=== PATIENT | female | born 1995 | race Caucasian/White ===

== ENCOUNTER 2021-04-13 17:14 | Emergency (ER) | payer MEDICAID ==
[2021-04-13 17:59] LABS: Bilirubin Neg (Negative); Blood, Urine Negative (Negative); Clarity Clear (Clear); Glucose, Urine (Dipstick) Normal (Negative); Ketone, Urine Negative (Negative); Leukocyte 100 (Negative); Nitrite Negative (Negative); Protein, Urine (Dipstick) Negative (Neg-Trace); Urobilinogen Normal mg/dL (Less than 2)
[2021-04-13 18:04] LABS: Pregnancy Test - Urine (BHCG) POSITIVE (Negative); Pregu Control Background? CLEAR/WHITE (CLR/WHITE); Pregu Control Bar Appear? YES (CONTROL BAR)
[2021-04-13 18:07] LABS: Bacteria/HPF None Seen HPF (None Seen); RBC/HPF None Seen HPF (0-3); Squamous Epithelial 0-3 HPF (0-3); WBC/HPF 0-3 HPF (0-3)
== END 2021-04-13 21:06 | disposition home or self-care (01) ==
LOC: CSHERS 17:14
DX: O20.0 Threatened abortion (principal); Z3A.01 Less than 8 weeks gestation of pregnancy; O99.511 Diseases of the respiratory system complicating pregnancy, first trimester; J45.909 Unspecified asthma, uncomplicated; O99.011 Anemia complicating pregnancy, first trimester; O99.331 Smoking (tobacco) complicating pregnancy, first trimester
CPT/HCPCS: 76856; 81003; 81015; 81025; 84702

== ENCOUNTER 2021-11-15 13:14 | Day surgery (SDC) | payer OTHER ==
[2021-11-15] MEDS ORDERED: Acetaminophen 500 MG TAB ONE (13:41)
[2021-11-15] MEDS ORDERED: Iron Sucrose Complex 500 MG in Sodium Chloride 0.9% 250 ML 250 ML IVPB SCH (14:00)
[2021-11-15] MEDS ORDERED: Acetaminophen 500 MG TAB PO SCH (14:00)
== END 2021-11-15 18:25 | disposition home or self-care (01) ==
LOC: CSHSDC/OP 13:14
PROVIDERS: ATTEND Family Medicine
DX: O99.019 Anemia complicating pregnancy, unspecified trimester (principal); D64.9 Anemia, unspecified
CPT/HCPCS: J1756; J7050

== ENCOUNTER 2021-12-05 14:34 | Outpatient (CLI) | payer OTHER | END 2021-12-05 14:35 | disposition home or self-care (01) | LOC: CSHLAB 14:34 | PROVIDERS: ATTEND Family Medicine | DX: Z20.822 Contact with and (suspected) exposure to COVID-19 (principal) | CPT/HCPCS: 87811 ==

== ENCOUNTER 2021-12-08 18:55 | Inpatient (IN) | payer OTHER ==
[~2021-12-08 18:55] MED LIST: Bupivacaine/Epinephrine 0.25% 30 ML VIAL ONE; Terbutaline Sulfate 1 MG/ML VIAL ONE
[2021-12-08 19:31] VITALS: BMI 27.3
[2021-12-08 20:43] LABS: Hemoglobin 8.7 g/dL (12.0-15.5); Mean Corpuscular HGB CONC 30.1 g/dL (32.0-36.0); Mean Corpuscular Hemoglobin 21.6 pg (27.0-33.0); Mean Corpuscular Volume 71.7 fl (81.6-98.3); Mean Platelet Volume 10.1 fl (7.4-10.4); Platelet Count 205 10x3/uL (150-450); RBC Distribution Width 24.5 % (11.5-14.5); Red Blood Cell (RBC) Count 4.03 10x6/uL (3.90-5.03); White Blood Cell (WBC) Count 6.5 10x3/uL (3.5-10.5)
[2021-12-08] MEDS ORDERED: Ondansetron PF 4 MG/2 ML Vial IVP PRN (20:43)
[2021-12-08] MEDS ORDERED: hydrALAZINE 20 MG/ML VIAL SLOW IVP PRN (20:43)
[2021-12-08] MEDS ORDERED: Promethazine HCl 25 MG/ML VIAL IM PRN (20:43)
[2021-12-08] MEDS ORDERED: Lidocaine 1% (PF) 30 ML VIAL SC PRN (20:43)
[2021-12-08 21:17] LABS: Hep B Surf Ag Non-Reactive S/CO (NonReactive)
[2021-12-08 21:20] LABS: HBSAg Index 0.29 S/CO (0-0.99)
[2021-12-08] MEDS ORDERED: Penicillin G Potassium 5 MILL.UNITS in Sodium Chloride 0.9% 100 ML IVPB SCH (21:30)
[2021-12-08] MEDS ORDERED: Lactated Ringer's 1,000 ML IV SCH (21:45)
[2021-12-08 22:19] LABS: Syphilis Antibody Nonreactive (Nonreactive); Syphilis Antibody Index 0.05 S/CO (<1.00 Non-Reactive)
[2021-12-08] MEDS: Misoprostol 100 MCG TAB VAG SCH (22:45)
[2021-12-09] MEDS: Penicillin G 2.5 MILL.units 2.5 MILL.UNITS in Premix Bag 1 BAG IVPB SCH ×3 (01:04→15:31)
[2021-12-09] MEDS ORDERED: Fentanyl 2 mcg/Bup 0.1% Cadd 100 ML ONE (03:17)
[2021-12-09] MEDS ORDERED: Terbutaline Sulfate 1 MG/ML VIAL SC SCH (04:45)
[2021-12-09] MEDS ORDERED: Terbutaline Sulfate 1 MG/ML VIAL ONE (04:47)
[2021-12-09] MEDS ORDERED: Acetaminophen 325 MG TAB PO PRN (04:56)
[2021-12-09] MEDS ORDERED: Naloxone HCl 0.4 mg/ml Vial IVP PRN ×2 (04:56)
[2021-12-09] MEDS ORDERED: Ondansetron PF 4 MG/2 ML Vial IVP PRN ×2 (04:56→07:59)
[2021-12-09] MEDS ORDERED: ePHEDrine Sulfate 50 MG/10 ML VIAL SLOW IVP PRN (04:56)
[2021-12-09] MEDS ORDERED: Moisturizing Cream (Eucerin) 113 GM JAR TOP PRN (04:56)
[2021-12-09] MEDS ORDERED: Promethazine HCl 25 MG/ML VIAL IM PRN (04:56)
[2021-12-09] MEDS ORDERED: diphenhydrAMINE 50 MG/ML VIAL IVP PRN (04:56)
[2021-12-09] MEDS ORDERED: Fentanyl 2 mcg/Bupivacaine 0.1% Cassette 100 ML EPIDURAL SCH (05:00)
[2021-12-09] MEDS ORDERED: Communication Order-Pharmacy FS SCH (05:00)
[2021-12-09] MEDS ORDERED: Lactated Ringer's 500 ML IV PRN (05:26)
[2021-12-09] MEDS ORDERED: Lactated Ringer's 500 ML IV SCH (05:30)
[2021-12-09] MEDS ORDERED: Misoprostol 200 MCG TAB ONE ×2 (07:36→07:38)
[2021-12-09] MEDS ORDERED: Tranexamic Acid 1,000 MG/10 ML VIAL ONE (07:38)
[2021-12-09] MEDS ORDERED: Carboprost 250 MCG/ML AMP ONE (07:39)
[2021-12-09] MEDS ORDERED: Methylergonovine 0.2 MG/ML VIAL ONE (07:39)
[2021-12-09] MEDS: NS w/ Oxytocin 30 units 500 ML IV SCH ×2 (07:54→09:35)
[2021-12-09] MEDS ORDERED: Milk Of Magnesia 30 ML UDCUP PO PRN (07:59)
[2021-12-09] MEDS ORDERED: Lanolin Ointment 7 GM TUBE TOP PRN (07:59)
[2021-12-09] MEDS ORDERED: Bisacodyl 10 MG SUPP PR PRN (07:59)
[2021-12-09] MEDS ORDERED: Boostrix 0.5 ML (Tdap) VIAL IM ONE (07:59)
[2021-12-09] MEDS ORDERED: Misoprostol 200 MCG TAB PR PRN (07:59)
[2021-12-09] MEDS ORDERED: hydrALAZINE 20 MG/ML VIAL SLOW IVP PRN (07:59)
[2021-12-09] MEDS ORDERED: Benzocaine-Menthol 82.5 ML CAN TOP PRN (07:59)
[2021-12-09] MEDS ORDERED: Methylergonovine 0.2 MG/ML VIAL IM PRN (09:02)
[2021-12-09] MEDS ORDERED: NS w/ Oxytocin 30 units 500 ML IV SCH (09:15)
[2021-12-09] MEDS: Ibuprofen 800 MG TAB PO SCH ×2 (15:20→21:56)
[2021-12-09] MEDS: Ferrous Sulfate 325 MG TAB PO SCH ×2 (15:21→17:16)
[2021-12-09] MEDS: Docusate 100 MG CAP PO SCH ×2 (15:21→21:56)
[2021-12-09] MEDS: Prenatal Vitamin 1 TAB PO SCH (15:21)
[2021-12-09] MEDS: Misoprostol 100 MCG TAB VAG SCH ×2 (15:30→15:31)
[2021-12-09 15:32] LABS: #Monocytes 1.3 10x3/uL (0.0-1.1); %Basophils 0.1 % (0.0-2.0); %Eosinophils 0.1 % (0.0-6.0); %Lymphocytes 12.2 % (18.0-47.0); %Monocytes 11.1 % (0.0-10.0); Hemoglobin 9.8 g/dL (12.0-15.5); Mean Corpuscular HGB CONC 29.5 g/dL (32.0-36.0); Mean Corpuscular Hemoglobin 21.7 pg (27.0-33.0); Mean Corpuscular Volume 73.5 fl (81.6-98.3); Mean Platelet Volume 10.7 fl (7.4-10.4); Platelet Count 217 10x3/uL (150-450); RBC Distribution Width 24.9 % (11.5-14.5); Red Blood Cell (RBC) Count 4.52 10x6/uL (3.90-5.03); White Blood Cell (WBC) Count 11.8 10x3/uL (3.5-10.5)
[2021-12-09 16:16] LABS: Anisocytosis MODERATE=16-30 cells (100X) (0-5/hpf); Hypochromia SLIGHT = 6-15 cells (100X) (0-5/hpf); Microcytosis SLIGHT = 6-15 cells (100X) (0-5/hpf)
[2021-12-09 16:18] LABS: Ovalocytes SLIGHT = 2-5 cells (100X) (0-1/hpf); Polychromasia SLIGHT = 2-3 cells (100X) (0-2/hpf)
[2021-12-09 16:21] LABS: Platelet Morphology Comment Appears Adequate
[2021-12-10] MEDS: Ibuprofen 800 MG TAB PO SCH ×2 (05:35→13:44)
[2021-12-10 06:39] LABS: #Monocytes 0.9 10x3/uL (0.0-1.1); #Neutrophils 4.7 10x3/uL (1.5-8.4); %Basophils 0.1 % (0.0-2.0); %Eosinophils 0.5 % (0.0-6.0); %Lymphocytes 33.9 % (18.0-47.0); %Monocytes 10.2 % (0.0-10.0); %Neutrophils 54.6 % (40.0-75.0); Hemoglobin 8.9 g/dL (12.0-15.5); Mean Corpuscular HGB CONC 30.3 g/dL (32.0-36.0); Mean Corpuscular Hemoglobin 22.1 pg (27.0-33.0); Mean Corpuscular Volume 73.1 fl (81.6-98.3); Mean Platelet Volume 10.1 fl (7.4-10.4); Platelet Count 186 10x3/uL (150-450); RBC Distribution Width 24.7 % (11.5-14.5); Red Blood Cell (RBC) Count 4.02 10x6/uL (3.90-5.03); White Blood Cell (WBC) Count 8.7 10x3/uL (3.5-10.5)
[2021-12-10 08:03] VITALS: BP 102/57; TEMP 97.7
[2021-12-10] MEDS: Prenatal Vitamin 1 TAB PO SCH (08:31)
[2021-12-10] MEDS: Ferrous Sulfate 325 MG TAB PO SCH (08:31)
[2021-12-10] MEDS: Docusate 100 MG CAP PO SCH (08:31)
[2021-12-10 09:20] LABS: Anisocytosis MODERATE=16-30 cells (100X) (0-5/hpf); Hypochromia SLIGHT = 6-15 cells (100X) (0-5/hpf); Large Platelets SLIGHT; Platelet Morphology Comment Appears Adequate
== END 2021-12-10 14:05 | disposition home or self-care (01) | DRG 805 ==
LOC: CSHLD 18:55 → CSHPED 12-09 13:45
PROVIDERS: ADMIT Family Medicine; ATTEND Family Medicine
PROC: 10E0XZZ Delivery of Products of Conception, External Approach (ICD-10-PCS; principal; 2021-12-09)
PROC: 0KQM0ZZ Repair Perineum Muscle, Open Approach (ICD-10-PCS; 2021-12-09)
PROC: 0UQMXZZ Repair Vulva, External Approach (ICD-10-PCS; 2021-12-09)
PROC: 3E0P7VZ Introduction of Hormone into Female Reproductive, Via Natural or Artificial Opening (ICD-10-PCS; 2021-12-09)
PROC: 10907ZC Drainage of Amniotic Fluid, Therapeutic from Products of Conception, Via Natural or Artificial Opening (ICD-10-PCS; 2021-12-09)
DX: O99.02 Anemia complicating childbirth (principal); O45.93 Premature separation of placenta, unspecified, third trimester; Z37.0 Single live birth; D64.9 Anemia, unspecified; O69.81X0 Labor and delivery complicated by cord around neck, without compression, not applicable or unspecified; O71.82 Other specified trauma to perineum and vulva; O70.1 Second degree perineal laceration during delivery; Z3A.39 39 weeks gestation of pregnancy; O99.824 Streptococcus B carrier state complicating childbirth; Z79.899 Other long term (current) drug therapy; O76 Abnormality in fetal heart rate and rhythm complicating labor and delivery; Z20.822 Contact with and (suspected) exposure to COVID-19
CPT/HCPCS: 36415; 51702; 85025; 85027; 86780; 86850; 86900; 86901; 87340; J2210; J2540; J2590; J3105; J3490